=== PATIENT | male | born 1960 | race African-American/Black ===

== ENCOUNTER 2019-10-16 16:11 | Inpatient (IN) | payer MEDICAID, OTHER ==
[~2019-10-16] VITALS: Ht 167.6 cm; Wt 82.6 kg
[2019-10-16] MEDS ORDERED: SODIUM CHLORIDE 0.9% 1000ML BAG (SEPSIS BOLUS) IV ONE (18:45)
[2019-10-16] MEDS ORDERED: VANCOMYCIN 1 G PREMIX 200 ML IV ONE (18:45)
[2019-10-16] MEDS ORDERED: PIPERACILLIN/TAZ 3.375G PREMIX 50 ML IV ONE (18:45)
[2019-10-16 19:29] LABS: CHLORIDE 110 mEq/L (98-107); HEMATOCRIT. 35.8 % (42.0-52.0); HEMOGLOBIN. 12.4 g/dL (14.0-18.0); MEAN CORPUSCULAR HEMOGLOBIN 30.1 pg (28.0-32.0); MEAN CORPUSCULAR VOLUME 86.6 fL (80.0-94.0); MEAN PLATELET VOLUME 8.6 fl (7.4-10.4); PLATELET 271 x1000/uL (130-400); RED BLOOD CELL COUNT 4.13 mill/uL (4.7-6.1); RED CELL DISTRIBUTION WIDTH 14.5 % (11.6-14.6)
[2019-10-16] MEDS ORDERED: AMLODIPINE 5MG TABLET PO ONE (19:30)
[2019-10-16 19:33] LABS: PROTHROMBIN TIME 10.6 sec (9.6-11.0)
[2019-10-16 20:19] LABS: PLATELET ESTIMATE NORMAL
[2019-10-16] MEDS ORDERED: IPRATROPIUM/ALBUTEROL 0.5-3(2.5)MG/3ML NEB ORI PRN (22:15)
[2019-10-16] MEDS ORDERED: NITROGLYCERIN 0.4MG TABLET SL SL PRN (22:15)
[2019-10-16] MEDS ORDERED: DOCUSATE SODIUM 100MG CAPSULE PO PRN (22:15)
[2019-10-16] MEDS ORDERED: ONDANSETRON HCL 4MG/2ML INJ IV PRN (22:15)
[2019-10-16] MEDS ORDERED: ACETAMINOPHEN 325MG TABLET PO PRN ×2 (22:15)
[2019-10-16] MEDS ORDERED: TRAMADOL 50MG TABLET PO PRN (22:15)
[2019-10-16] MEDS ORDERED: CLONIDINE 0.1MG TABLET PO PRN (22:15)
[2019-10-16] MEDS ORDERED: PIPERACILLIN/TAZ 3.375G PREMIX 50 ML IV SCH (22:15)
[2019-10-16] MEDS ORDERED: MAGNESIUM/ALUMINUM HYDROXIDE/SIMETHICONE 30ML UDC PO PRN (22:15)
[2019-10-16] MEDS ORDERED: KETOROLAC 15MG/ML VIAL IV PRN (22:15)
[2019-10-16] MEDS ORDERED: ZOLPIDEM TARTRATE 5MG TABLET PO PRN (22:15)
[2019-10-16] MEDS ORDERED: GUAIFENESIN 200MG/10ML SUGAR FREE UDC PO PRN (22:15)
[2019-10-16] MEDS ORDERED: HYDROCODONE/ACETAMINOPHEN 5/325MG TABLET PO ONE (22:30)
[2019-10-16] MEDS: ENOXAPARIN 40MG/0.4ML SYR SUBCUT SCH (22:57)
[2019-10-17] VITALS: BP 132/94
[2019-10-17] MEDS ORDERED: VANCOMYCIN 1 G PREMIX 200 ML IV NR
[2019-10-17 00:30] VITALS: BP 132/68
[2019-10-17 04:00] VITALS: BP 118/86
[2019-10-17] MEDS ORDERED: PIPERACILLIN/TAZ 3.375G PREMIX 50 ML IV SCH (04:00)
[2019-10-17] MEDS: PIPERACILLIN/TAZOBACTAM 3.375 G in DEXT 5% WATER 100 ML IV SCH ×3 (04:17→21:02)
[2019-10-17 08:00] VITALS: BP 104/75
[2019-10-17] MEDS: VANCOMYCIN 750 MG PREMIX 150 ML IV SCH (08:00)
[2019-10-17 08:19] LABS: FOLIC ACID (FOLATE) SERUM 7.4 ng/mL (>5.38)
[2019-10-17] MEDS: METOPROLOL TARTRATE 25MG TABLET PO SCH ×2 (10:07→21:03)
[2019-10-17] MEDS: ASCORBIC ACID 500 MG TABLET PO SCH ×2 (10:07→21:03)
[2019-10-17] MEDS: ZINC SULFATE 220 MG ( 50 ) CAPSULE PO SCH (10:07)
[2019-10-17] MEDS: FAMOTIDINE 20MG TABLET PO SCH ×2 (10:08→21:03)
[2019-10-17] MEDS: ENOXAPARIN 40MG/0.4ML SYR SUBCUT SCH (10:09)
[2019-10-17] MEDS ORDERED: IOHEXOL-300 100 ML BOTTLE ONE (14:19)
[2019-10-17 20:00] VITALS: BP 142/101
[2019-10-18] VITALS: BP 139/86
[2019-10-18] MEDS: VANCOMYCIN 750 MG PREMIX 150 ML IV SCH ×3 (00:43→21:04)
[2019-10-18 04:00] VITALS: BP 145/90
[2019-10-18] MEDS: PIPERACILLIN/TAZOBACTAM 3.375 G in DEXT 5% WATER 100 ML IV SCH ×3 (04:08→20:20)
[2019-10-18 04:31] LABS: *AMPHETAMINES SCREEN URINE NEGATIVE (NEGATIVE); *BARBITURATES SCREEN URINE NEGATIVE (NEGATIVE); *BENZODIAZEPINES SCREEN URINE NEGATIVE (NEGATIVE); *COCAINE SCREEN URINE NEGATIVE (NEGATIVE)
[2019-10-18 04:32] LABS: CANNABINOID URINE SCREEN NEGATIVE (NEGATIVE); METHADONE URINE SCREEN NEGATIVE (NEGATIVE); OPIATES URINE SCREEN NEGATIVE (NEGATIVE); PHENCYCLIDINE URINE SCREEN NEGATIVE (NEGATIVE)
[2019-10-18 08:00] VITALS: BP 138/92
[2019-10-18 08:10] LABS: CHLORIDE 106 mEq/L (98-107)
[2019-10-18] MEDS: ASCORBIC ACID 500 MG TABLET PO SCH ×2 (10:04→20:21)
[2019-10-18] MEDS: FAMOTIDINE 20MG TABLET PO SCH ×2 (10:04→20:21)
[2019-10-18] MEDS: METOPROLOL TARTRATE 25MG TABLET PO SCH ×2 (10:05→20:21)
[2019-10-18] MEDS: ENOXAPARIN 40MG/0.4ML SYR SUBCUT SCH (10:06)
[2019-10-18] MEDS: ZINC SULFATE 220 MG ( 50 ) CAPSULE PO SCH (10:14)
[2019-10-18 12:02] VITALS: BP 129/86
[2019-10-18 13:28] LABS: CLARITY URINE CLEAR (CLEAR); COLOR URINE YELLOW (YELLOW); KETONES URINE NEGATIVE (NEGATIVE); LEUKOCYTE ESTERASE URINE NEGATIVE (NEGATIVE); NITRITE URINE NEGATIVE (NEGATIVE); OCCULT BLOOD URINE NEGATIVE (NEGATIVE); PH URINE 8.5 (4.5-8.0); PROTEIN URINE NEGATIVE (NEGATIVE); SPECIFIC GRAVITY URINE 1.024 (1.005-1.030); UROBILINOGEN URINE 0.2 E.U./dL (0.2-1.0)
[2019-10-18 16:00] VITALS: BP 141/95
[2019-10-19] VITALS (7 sets, daily range): BP systolic 109–140; BP diastolic 68–100
[2019-10-19] MEDS: PIPERACILLIN/TAZOBACTAM 3.375 G in DEXT 5% WATER 100 ML IV SCH ×3 (03:17→21:17)
[2019-10-19] MEDS: ZINC SULFATE 220 MG ( 50 ) CAPSULE PO SCH (08:52)
[2019-10-19] MEDS: METOPROLOL TARTRATE 25MG TABLET PO SCH ×2 (08:52→21:29)
[2019-10-19] MEDS: VANCOMYCIN 750 MG PREMIX 150 ML IV SCH ×2 (08:52→22:03)
[2019-10-19] MEDS: ASCORBIC ACID 500 MG TABLET PO SCH ×2 (08:52→21:29)
[2019-10-19] MEDS: FAMOTIDINE 20MG TABLET PO SCH ×2 (08:52→21:29)
[2019-10-19] MEDS: ENOXAPARIN 40MG/0.4ML SYR SUBCUT SCH (08:53)
[2019-10-20] VITALS: BP 121/61
[2019-10-20 04:00] VITALS: BP 95/63
[2019-10-20] MEDS: PIPERACILLIN/TAZOBACTAM 3.375 G in DEXT 5% WATER 100 ML IV SCH ×3 (04:57→20:48)
[2019-10-20] MEDS ORDERED: BACITRACIN 50,000 UNITS/VIAL ONE (07:51)
[2019-10-20] MEDS ORDERED: BUPIVACAINE HCL 0.5% (5MG/ML) 50ML ONE (07:51)
[2019-10-20] MEDS ORDERED: NORMAL SALINE 0.9% 10 ML SYR ONE (07:51)
[2019-10-20 08:00] VITALS: BP 84/42
[2019-10-20] MEDS: ASCORBIC ACID 500 MG TABLET PO SCH ×2 (09:00→20:50)
[2019-10-20] MEDS: FAMOTIDINE 20MG TABLET PO SCH ×2 (09:00→20:49)
[2019-10-20] MEDS ORDERED: MIDAZOLAM HCL 2 MG/2 ML VIAL ONE (09:00)
[2019-10-20] MEDS ORDERED: FENTANYL CITRATE/PF 50MCG/ML 2ML VIAL ONE (09:00)
[2019-10-20] MEDS ORDERED: PROPOFOL 200MG/20ML VIAL IV ONE (09:00)
[2019-10-20] MEDS: ZINC SULFATE 220 MG ( 50 ) CAPSULE PO SCH (09:00)
[2019-10-20] MEDS: ENOXAPARIN 40MG/0.4ML SYR SUBCUT SCH (09:00)
[2019-10-20] MEDS: VANCOMYCIN 750 MG PREMIX 150 ML IV SCH ×2 (09:00→14:41)
[2019-10-20] MEDS: METOPROLOL TARTRATE 25MG TABLET PO SCH ×2 (09:00→20:50)
[2019-10-20] MEDS ORDERED: ONDANSETRON HCL 4MG/2ML INJ ONE (09:05)
[2019-10-20] MEDS ORDERED: DEXAMETHASONE 4MG/ML 1ML VIAL ONE (09:05)
[2019-10-20] MEDS ORDERED: MEPERIDINE HCL/PF 25MG/ML CPJ IV PRN (09:30)
[2019-10-20] MEDS ORDERED: HYDROMORPHONE HCL/PF 2MG/ML CPJ IV PRN (09:30)
[2019-10-20] MEDS ORDERED: ONDANSETRON HCL 4MG/2ML INJ IV PRN (09:30)
[2019-10-20] MEDS ORDERED: LABETALOL 5MG/ML SYR 20 MG/4 ML SYRINGE IV PRN (09:30)
[2019-10-20 12:00] VITALS: BP 102/73
[2019-10-20 13:16] LABS: BASOPHILS % 1.1 % (0.0-2.0); EOSINOPHILS % 5.2 % (0.0-5.0); HEMATOCRIT. 37.8 % (42.0-52.0); HEMOGLOBIN. 12.8 g/dL (14.0-18.0); LYMPHOCYTES % 31.5 % (20.0-50.0); MEAN CORPUSCULAR HEMOGLOBIN 29.5 pg (28.0-32.0); MEAN CORPUSCULAR VOLUME 87.1 fL (80.0-94.0); MEAN PLATELET VOLUME 8.8 fl (7.4-10.4); MONOCYTES % 11.1 % (2.0-8.0); NEUTROPHILS % 51.1 % (40.0-76.0); PLATELET 287 x1000/uL (130-400); RED BLOOD CELL COUNT 4.34 mill/uL (4.7-6.1); RED CELL DISTRIBUTION WIDTH 14.5 % (11.6-14.6)
[2019-10-20 16:00] VITALS: BP 111/72
[2019-10-20 20:00] VITALS: BP 120/75
[2019-10-21] VITALS: BP 97/57
[2019-10-21] MEDS: VANCOMYCIN 750 MG PREMIX 150 ML IV SCH ×2 (03:48→15:17)
[2019-10-21] MEDS: PIPERACILLIN/TAZOBACTAM 3.375 G in DEXT 5% WATER 100 ML IV SCH ×3 (04:53→21:36)
[2019-10-21 07:01] LABS: CHLORIDE 107 mEq/L (98-107)
[2019-10-21 08:00] VITALS: BP 95/61
[2019-10-21] MEDS: METOPROLOL TARTRATE 25MG TABLET PO SCH ×2 (09:00→21:37)
[2019-10-21] MEDS: FAMOTIDINE 20MG TABLET PO SCH ×2 (09:18→21:36)
[2019-10-21] MEDS: ASCORBIC ACID 500 MG TABLET PO SCH ×2 (09:18→21:36)
[2019-10-21] MEDS: ZINC SULFATE 220 MG ( 50 ) CAPSULE PO SCH (09:18)
[2019-10-21] MEDS: ENOXAPARIN 40MG/0.4ML SYR SUBCUT SCH (09:18)
[2019-10-21 12:00] VITALS: BP 90/68
[2019-10-21 16:00] VITALS: BP 145/47
[2019-10-21 20:00] VITALS: BP 137/83
[2019-10-22] VITALS: BP 95/59
[2019-10-22 04:00] VITALS: BP 106/61
[2019-10-22 08:00] VITALS: BP 112/73
[2019-10-22] MEDS: ASCORBIC ACID 500 MG TABLET PO SCH (09:13)
[2019-10-22] MEDS: METOPROLOL TARTRATE 25MG TABLET PO SCH (09:13)
[2019-10-22] MEDS: ZINC SULFATE 220 MG ( 50 ) CAPSULE PO SCH (09:13)
[2019-10-22] MEDS: ENOXAPARIN 40MG/0.4ML SYR SUBCUT SCH (09:13)
[2019-10-22 09:38] VITALS: BP 112/73
== END 2019-10-22 10:20 | disposition home or self-care, planned readmission (81) | DRG 951 ==
LOC: ER 16:11 → MICUSO 22:03 → EDBEDREQSVC 22:07 → EDBEDREQ 22:07 → 6EST 22:49
PROVIDERS: ADMIT Internal Medicine; ATTEND Internal Medicine
PROC: 0JDL0ZZ Extraction of Right Upper Leg Subcutaneous Tissue and Fascia, Open Approach (ICD-10-PCS; principal; 2019-10-21)
DX: T82.898A Other specified complication of vascular prosthetic devices, implants and grafts, initial encounter (principal); A41.9 Sepsis, unspecified organism; G92 Toxic encephalopathy; I10 Essential (primary) hypertension; G40.909 Epilepsy, unspecified, not intractable, without status epilepticus; F20.9 Schizophrenia, unspecified; D63.8 Anemia in other chronic diseases classified elsewhere; E44.1 Mild protein-calorie malnutrition; E11.9 Type 2 diabetes mellitus without complications; Y82.8 Other medical devices associated with adverse incidents; S31.103A Unspecified open wound of abdominal wall, right lower quadrant without penetration into peritoneal cavity, initial encounter; S71.001A Unspecified open wound, right hip, initial encounter; Y83.8 Other surgical procedures as the cause of abnormal reaction of the patient, or of later complication, without mention of misadventure at the time of the procedure; Y92.89 Other specified places as the place of occurrence of the external cause; Z68.29 Body mass index [BMI] 29.0-29.9, adult; Z79.899 Other long term (current) drug therapy; L03.818 Cellulitis of other sites
CPT/HCPCS: 36415; 71045; 73700; 80048; 80053; 80061; 80202; 80305; 81003; 82607; 82746; 83036; 83540; 83550; 83605; 84145; 84484; 85025; 88300; 93970; 97162; 97166; 99285; J1100; J1170; J1650; J1885; J2250; J2405; J2543; J2704; J3010; J3370; J3490; J7030; J7060; Q9967